=== PATIENT | female | born 1945 | race Caucasian/White ===

== ENCOUNTER 2017-06-24 07:14 | Day surgery (SDC) | payer MEDICARE ==
[~2017-06-24] VITALS: Ht 164.5 cm; Wt 69.9 kg
[~2017-06-24 07:14] MED LIST: ALLEGRA180 MG PO; B121000 MCG PO; CALCIUM500 M5 PO; CINNAMON500 M1 PO; INDERAL 20MG TA20 MG PO; LOSARTAN POT25 MG PO; MULTI VIT PO; ST JOSEPH LOW D81 MG PO; ZOCOR10 MG PO
[2017-06-24 09:13] VITALS: BP 128/72
== END 2017-06-24 09:30 | disposition home or self-care (01) ==
LOC: ENDO 07:14
PROVIDERS: ATTEND Surgery
PROC: 0DJD8ZZ Inspection of Lower Intestinal Tract, Via Natural or Artificial Opening Endoscopic (ICD-10-PCS; principal; 2017-06-24)
DX: Z12.11 Encounter for screening for malignant neoplasm of colon (principal); K64.4 Residual hemorrhoidal skin tags; K57.30 Diverticulosis of large intestine without perforation or abscess without bleeding

== ENCOUNTER → 2018-05-25 | Outpatient (REF) | payer MEDICARE ==
[2018-05-25 07:16] LABS: HEMATOCRIT 38.7 % (37.0-47.0); HEMOGLOBIN 13.1 g/dl (12.0-16.0); IMMATURE GRANULOCYTES 0.3 % (0.0-5.0); MEAN CELL VOLUME 91.5 fL CALC (80.0-100.0); MEAN CORPUSCULAR HGB CONC 33.9 g/L CALC (32.0-36.0); NEUT# 3.31 thou/uL (2.00-7.15); RED BLOOD COUNT 4.23 mill/uL (4.20-5.60); RED CELL DISTRI WIDTH 12.7 % (11.5-15.5)
[2018-05-25 07:50] LABS: ANION GAP 14 (6-22 (CALC)); BUN 21 mg/dL (8-23); BUN/CREATININE RATIO 21 (12-20 (CALC)); CALCULATED LDLCHOLESTEROL 76 mg/dL (62-129 (CALC)); CARBON DIOXIDE 30 mmol/l (22-30); CHLORIDE 101 mmol/l (95-108); CHOLESTEROL HDL RATIO 3.2 (<4.4 (CALC)); GFR 55 ML/MIN (>=60 (CALC)); GFR FOR AFR.AMER. > 60 ML/MIN (>=60 (CALC)); HDL CHOLESTEROL 48 mg/dL (>=40); POTASSIUM 4.4 mmol/l (3.5-5.1); SODIUM 141 mmol/l (137-146); TOTAL CHOLESTEROL 152 mg/dl (0-199); TOTAL TRIGLYCERIDES 143 mg/dl (30-149); VLDL CHOLESTROL 29 mg/dl (0-48 (CALC))
[2018-05-25 08:20] LABS: TSH, 3RD GENERATION 3.64 uIU/mL (0.47 - 4.68)
== END | disposition home or self-care (01) ==
LOC: LAB 06:46
PROVIDERS: ATTEND Nurse Practitioner Family
DX: E11.40 Type 2 diabetes mellitus with diabetic neuropathy, unspecified (principal); E78.49 Other hyperlipidemia; I10 Essential (primary) hypertension